=== PATIENT | female | born 1970 | race African-American/Black ===

== ENCOUNTER 2018-01-07 07:24 | Emergency (ER) | payer SELFPAY ==
--- NOTE | 2018-01-07 08:26 | RAD ---
PORTABLE CHEST ONE VIEW: Date: 01-07-18 Time: 7:58 a.m. History: Dyspnea. Comparison: 11-18-16 FINDINGS: Scarring in the right lung base again seen. The heart size is normal. No lobar consolidation, pneumot horaces or pleural effusions are identified. IMPRESSION: No acute process. POS: [facility]
[2018-01-07] MEDS ORDERED: Acetaminophen 500 MG TAB ONE (08:55)
== END 2018-01-07 09:08 | disposition home or self-care (01) ==
LOC: ERS 07:24
DX: J45.901 Unspecified asthma with (acute) exacerbation (principal); I45.81 Long QT syndrome; I10 Essential (primary) hypertension; G40.909 Epilepsy, unspecified, not intractable, without status epilepticus
CPT/HCPCS: 71045; 93005; 94760

== ENCOUNTER 2018-04-07 15:20 | Emergency (ER) | payer SELFPAY ==
--- NOTE | 2018-04-07 16:05 | RAD ---
CHEST ONE VIEW: 04/07/18 HISTORY: Chest pain. COMPARISON: 01/07/18. FINDINGS: The cardiac silhouette is magnified by projection. Pulmonary vasculature is unremarkable. Mediastinum is midline. Linear scarring at the right base is stable. No confluent air space consolidation or oli dence of pneumothorax. IMPRESSION: Chronic type findings are stable. No active cardiopulmonary abnormalities are demonstrated. POS: [facility]
[2018-04-07 16:27] LABS: CKMB 4.8 ng/mL (0-6.6); Troponin I 0.014 ng/mL (< 0.028)
[2018-04-07 16:32] LABS: ALT (SGPT) 32 U/L (8-55); AST (SGOT) 33 U/L (5-34); Albumin 4.1 g/dL (3.5-5.0); Alkaline Phosphatase 79 U/L (40-150); Anion Gap 12 mmol/L (10-20); BUN (Urea Nitrogen) 15 mg/dL (7.0-18.7); Bilirubin, Total 0.2 mg/dL (0.2-1.2); CK (CPK) 513 U/L (29-168); Calc. Creatinine Clearance 0 mL/min (70-130); Calcium 9.4 mg/dL (7.8-10.44); Carbon Dioxide 22 mmol/L (22-29); Chloride 108 mmol/L (98-107); Estimated GFR-MDRD 71; Globulin 3.6 g/dL (2.4-3.5); Glucose 151 mg/dL (70-105); Potassium 3.8 mmol/L (3.5-5.1); Protein, Total 7.7 g/dL (6.0-8.3); Sodium 138 mmol/L (136-145)
[2018-04-07 17:08] LABS: Hemoglobin 8.7 g/dL (12.0-16.0); Mean Corpuscular HGB CONC 30.6 g/dL (32.0-36.0); Mean Corpuscular Hemoglobin 18.8 pg (27.0-31.0); Mean Corpuscular Volume 61.5 fL (78.0-98.0); Mean Platelet Volume 5.7 fL (7.4-10.4); Platelet Count 321 thou/uL (130-400); RBC Distribution Width 17.4 % (11.5-14.5); Red Blood Cell (RBC) Count 4.61 mill/uL (4.20-5.40)
[2018-04-07 17:27] LABS: #Basophils 0.1 thou/uL (0.0-0.2); #Eosinphils 0.1 thou/uL (0.0-0.7); #Lymphocytes 2.7 thou/uL (1.20-3.40); #Monocytes 0.9 thou/uL (0.11-0.59); #Neutrophils 5.4 thou/uL (1.40-6.50); %Basophils 0.7 % (0.0-1.0); %Eosinophils 0.7 % (0.0-10.0); %Lymphocytes 29.5 % (21.0-51.0); %Monocytes 9.6 % (0.0-10.0); %Neutrophils 59.5 % (42.0-75.0)
[2018-04-07 17:34] LABS: Anisocytosis SLIGHT = 6-15 cells (100X) (0-5/hpf); Hypochromia SLIGHT = 6-15 cells (100X) (0-5/hpf); Microcytosis MODERATE=15-30 cells (100X) (0-5/hpf); Ovalocytes SLIGHT = 2-5 cells (100X) (0-1/hpf)
[2018-04-07 17:35] LABS: PLT Morphology Comment Appears Adequate; Tear Drops SLIGHT = 2-5 cells (100X) (0-1/hpf)
--- NOTE | 2018-04-07 17:50 | CT ---
HEAD CT WITHOUT CONTRAST: 04/07/18 COMPARISON: 02/27/15. CORRELATION: CT angiogram of the head 09/04/16. HISTORY: Previous intervention and repair of an aneurysm. Headache. TECHNIQUE: Noncontrast head CT is performed from skull base to skull vertex. FINDINGS: There is stable postsurgical changes involving the right calvarium. Stable positioning of an aneurysm clip, adjacent to the left clinoid process. There is associated beam attenuation artifact. 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 Remainder of the cerebrum demonstrates preservation of cortical dhillon-w rudy matter differentiation. No evidence of hydrocephalus. No parenchymal hemorrhage. No extra-axial hematoma. Adequate aeration of the sinuses and mastoid air cells. Old right lamina papyracea fracture is noted. IMPRESSION: 1. No acute intracranial process. 2. Stable postoperative changes and post treatment changes as above. POS: [facility]
[2018-04-07] MEDS ORDERED: predniSONE 20 MG TAB ONE (17:54)
[2018-04-07] MEDS ORDERED: Ketorolac Tromethamine 60 MG/2 ML VIAL ONE (17:54)
== END 2018-04-07 18:16 | disposition home or self-care (01) ==
LOC: ERS 15:20
DX: R51 Headache (principal); I10 Essential (primary) hypertension; J45.909 Unspecified asthma, uncomplicated; Z79.899 Other long term (current) drug therapy
CPT/HCPCS: 36415; 70460; 71045; 80053; 82550; 82553; 83880; 84484; 85025; 85060; 93005; 96372; J1885; J7506

== ENCOUNTER 2019-08-31 08:38 | Emergency (ER) | payer SELFPAY ==
[2019-08-31] MEDS ORDERED: Acetaminophen 500 MG TAB ONE (09:27)
[2019-08-31] MEDS ORDERED: Ketorolac Tromethamine 60 MG/2 ML VIAL ONE (09:27)
== END 2019-08-31 10:11 | disposition home or self-care (01) ==
LOC: ERS 08:38
DX: M54.5 Low back pain (principal); I10 Essential (primary) hypertension; J45.909 Unspecified asthma, uncomplicated; Z79.899 Other long term (current) drug therapy; Z79.51 Long term (current) use of inhaled steroids
CPT/HCPCS: 96372; 99283; J1885

== ENCOUNTER 2019-11-20 16:03 | Emergency (ER) | payer SELFPAY ==
--- NOTE | 2019-11-20 17:00 | RAD ---
XR Knee Lt 4 View STANDARD: 11/20/2019 4:33 PM CLINICAL INDICATION: Left knee pain COMPARISON: None. FINDINGS: Bones: No acute fracture is demonstrated. Joints: No joint capsular distention.. Soft Tissue: No acute abnormality.. IMPRESSION: No acute osseous abnormality..
[2019-11-20] MEDS ORDERED: Ketorolac Tromethamine 60 MG/2 ML VIAL ONE (17:37)
== END 2019-11-20 18:21 | disposition home or self-care (01) ==
LOC: ERS 16:03
DX: M25.562 Pain in left knee (principal); I10 Essential (primary) hypertension; J45.909 Unspecified asthma, uncomplicated; Z79.899 Other long term (current) drug therapy; Z79.51 Long term (current) use of inhaled steroids; W01.0XXA Fall on same level from slipping, tripping and stumbling without subsequent striking against object, initial encounter
CPT/HCPCS: 96372; J1885